=== PATIENT | female | born 1985 | race African-American/Black ===

== ENCOUNTER 2017-07-18 17:12 | Emergency (ER) | payer SELFPAY ==
[~2017-07-18] VITALS: Wt 125.2 kg
[2017-07-18] MEDS ORDERED: SOD CHLORIDE 0.9% 1,000 ML IV STA (18:38)
[2017-07-18] MEDS ORDERED: morphine 4 MG/ML VIAL IV STA ×2 (18:38→23:36)
--- NOTE | 2017-07-18 19:10 | RADRPT ---
PROCEDURE: Chest x-ray CLINICAL INDICATION: Chest pain TECHNIQUE: Chest single view COMPARISON: None FINDINGS: The heart is normal in size. The pulmonary vessels are normal in caliber. The lungs are clear. Th e costophrenic angles are sharp. The visualized bony thorax is unremarkable. IMPRESSION: No acute cardiopulmonary disease. RPTAT: HH .Deshawn Taylor MD, Date Time Electronically viewed and signed by .Deshawn Taylor MD, MD on 07/18/2017 19:10 .W/
--- NOTE | 2017-07-18 19:20 | ERD ---
ER Documentation Chief Complaint Chief Complaint bib ems cc anxiety attack while filing out restraining order at court [facility] This is a 32 year old female presents to the emergency department stating she is having an anxiety attack. Patient states earlier today she was at a courthouse filling out restraining order information. Patient states she developed chest pain, shortness of breath and dizziness. Chest pain is intermittent and started about 8 hours ago. Patient also reports she had a "tumor removed" from her ovary 1 month ago. Patient states she developed pelvic pain and vaginal bleeding today. Patient reports heavy vaginal bleeding. No dysuria, hematuria, urinary urgency. No fevers or chills. Patient repeatedly saying "I feel like I am having anxiety attack!" ROS All systems reviewed and are negative except as per history of present illness. Medications Home Meds Active Scripts Alprazolam* (Xanax*) 0.25 Mg Tablet, 0.25 MG PO Q8H Y for ANXIETY, #10 TAB Prov:EVE ANGELES NP 07/19/17 Discontinued Scripts Hydrocodone/Acetaminophen ([place] 5-325 Tablet) 1 Each Tablet, 1 TAB PO Q6H Y for PAIN, #7 TAB Prov:EVE ANGELES NP 07/19/17 Allergies Allergies: Coded Allergies: No Known Allergy (Unverified , 07/18/17) PMhx/Soc Medical and Surgical Hx: pt denies Medical Hx, pt denies Surgical Hx Hx Alcohol Use: No Hx Substance Use: No Smoking Status: Never smoker Physical Exam Vitals Vital Signs Date Time Temp Pulse Resp B/P Pulse Ox O2 Delivery O2 Flow Rate FiO2 07/19/17 01:02 98.4 53 17 115/62 100 Room Air 07/18/17 17:13 98.5 24 20 150/80 100 Physical Exam Const: Alert, crying Head: Atraumatic Eyes: Normal Conjunctiva ENT: Normal External Ears, Nose and Mouth. Neck: Full range of motion..~ No meningismus. Resp: Clear to auscultation bilaterally Cardio: Regular rate and rhythm, no murmurs Abd: Soft, non tender, non distended. Normal bowel sounds Skin: No petechiae or rashes Back: No midline or flank tenderness Ext: No cyanosis, or edema Neur: Awake and alert Psych: Normal Mood and Affect Result Diagram: 07/18/17190907/18/171909 Results 24 hrs Laboratory Tests Test 07/18/17 19:10 07/18/17 22:10 White Blood Count 8.210^3/ul Red Blood Count 4.4510^6/ul Hemoglobin 12.7g/dl Hematocrit 38.9% Mean Corpuscular Volume 87.4fl Mean Corpuscular Hemoglobin 28.5pg Mean Corpuscular Hemoglobin Concent 32.6g/dl Red Cell Distribution Width 14.0% Platelet Count 76664^3/UL Mean Platelet Volume 12.3fl Neutrophils % 62.4% Lymphocytes % 26.0% Monocytes % 10.1% Eosinophils % 0.9% Basophils % 0.4% Nucleated Red Blood Cells % 0.0/100WBC Neutrophils # 5.110^3/ul Lymphocytes # 2.110^3/ul Monocytes # 0.810^3/ul Eosinophils # 0.110^3/ul Basophils # 0.010^3/ul Nucleated Red Blood Cells # 0.010^3/ul Sodium Level 151mmol/L Potassium Level 4.1mmol/L Chloride Level 109mmol/L Carbon Dioxide Level 26mmol/L Anion Gap 20 Blood Urea Nitrogen 9mg/dl Creatinine 0.83mg/dl Glucose Level 101mg/dl Calcium Level 10.2mg/dl Troponin I < 0.012ng/ml Serum HCG, Qualitative NEGATIVE Urine Color YELLOW Urine Clarity CLEAR Urine pH 5.0 Urine Specific [place] 1.028 Urine Ketones 2+mg/dL Urine Nitrite NEGATIVEmg/dL Urine Bilirubin NEGATIVEmg/dL Urine Urobilinogen NEGATIVEmg/dL Urine Leukocyte Esterase NEGATIVELeu/ul Urine Microscopic RBC 97/HPF Urine Microscopic WBC 2/HPF Urine Mucus FEW/HPF Urine Hemoglobin 3+mg/dL Urine Glucose NEGATIVEmg/dL Urine Total Protein 1+mg/dl Current Medications Medications (Trade) Dose Ordered Sig/Shauna Route PRN Reason Start Time Stop Time Status Last Admin Dose Admin Sodium Chloride (NS) 1,000 ml @ 1,000 mls/hr Q1H STAT IV 07/18/17 18:38 07/18/17 19:37 DC 07/18/17 19:12 Morphine Sulfate (morphine) 4 mg ONCE STAT IV 07/18/17 18:38 07/18/17 18:43 DC 07/18/17 19:12 Lorazepam (Ativan) 1 mg ONCE ONCE IV 07/18/17 21:00 07/18/17 21:01 DC 07/18/17 20:42 Ondansetron HCl (Zofran Odt) 4 mg ONCE STAT ODT 07/18/17 22:08 07/18/17 22:09 DC 07/18/17 22:23 Morphine Sulfate (morphine) 4 mg ONCE STAT IV 07/18/17 23:36 07/18/17 23:37 DC 07/18/17 23:55 Procedures/MDM DIAGNOSTIC IMAGING REPORT Patient: MONSE BOSS : 1985 Age: 32 Sex: F MR #: [id number] DOS: 07/18/171837 Ordering MD: EVE FARLEY NP Location: [facility] Room/Bed: PROCEDURE: US Pelvis CLINICAL INDICATION: Pain, vaginal bleeding TECHNIQUE: Sonographic evaluation of the pelvis was performed utilizing both transabdominal and transvaginal technique. Curved array transabdominal transducer technique as well as a high frequency endovaginal probe was utilized. Images were reviewed on the high-resolution PACS workstation. COMPARISON: None available FINDINGS: The uterus is normal in size, echogenicity, and morphology measuring 8.3 x 4.0 x 4.9 cm in dimension. The uterus is anteverted in normal position. The endometrium measures 1.7 mm in diameter. The normal trilaminar stripe of the endometrium is preserved. Ovaries are not visualized. No adnexal mass is identified. Small amount of pelvic free fluid is present. IMPRESSION: 1. Uterus and endometrium are unremarkable. 2. Bilateral ovaries are not visualized. No adnexal mass is identified. 3. Nonspecific small amount of pelvic free fluid is present, likely physiologic. DIAGNOSTIC IMAGING REPORT Patient: MONSE BOSS : 1985 Age: 32 Sex: F MR #: [id number] DOS: 07/18/171837 Ordering MD: EVE FARLEY NP Location: [facility] Room/Bed: PROCEDURE: Chest x-ray CLINICAL INDICATION: Chest pain TECHNIQUE: Chest single view COMPARISON: None FINDINGS: The heart is normal in size. The pulmonary vessels are normal in caliber. The lungs are clear. The costophrenic angles are sharp. The visualized bony thorax is unremarkable. IMPRESSION: No acute cardiopulmonary disease. [place] [id number] Radiology Main Line: [phone] DIAGNOSTIC IMAGING REPORT Patient: MONSE BOSS : 1985 Age: 32 Sex: F MR #: [id number] DOS: 07/18/17 2238 Ordering MD: EVE FARLEY NP Location: [facility] Room/Bed: PROCEDURE: CT abdomen and pelvis without contrast. CLINICAL INDICATION: Pelvic pain TECHNIQUE: CT scan of the abdomen and pelvis without contrast was performed. Sagittal and coronal reformatted images were obtained from the axial source images. One or more of the following dose reduction techniques were used: Automated exposure control, adjustment of the mA and/or kV according to patient size, use of iterative reconstruction technique. CTDI = 23.74 mGy; DLP = 1502.79 mGy-cm COMPARISON: Pelvic ultrasound 07/18/2017 FINDINGS: The study is limited by the patient's body habitus. Visualized lower thorax: Mild scattered bibasilar subsegmental atelectasis is present greater on the right. There is no evidence for pleural effusion. Liver, gallbladder, pancreas and spleen: Diffuse low attenuation of the liver is compatible with hepatic steatosis with preserved liver size and contour> . There is no evidence for a liver mass or ductal dilatation. The gallbladder is unremarkable. No common bile duct abnormality is demonstrated. The pancreas is unremarkable. The spleen is normal in size. Adrenal glands and genitourinary system: The adrenal glands are normal bilaterally. The kidneys are normal and size, contour and attenuation with no evidence for masses, calculi or hydronephrosis. The ureters are unremarkable. No urinary bladder abnormality is demonstrated. The uterus and adnexa are unremarkable. Free fluid is seen within the posterior cul-de-sac corresponding to the ultrasound findings. There is no evidence of adnexal mass. Metallic density, possibly from a piercing, is seen within the vulva Gastrointestinal system: The stomach is normal in caliber with no abnormality of significance. The small bowel is normal in caliber with no ileus, obstruction or wall thickening. The appendix and surrounding fat are within the limits of normal. Some scattered diverticula are present throughout the colon most pronounced in the transverse segment. There is no evidence for colitis or diverticulitis. Peritoneum, retroperitoneum, lymph nodes and vessels: The abdominal aorta is normal in caliber. There is no evidence for atherosclerotic calcification. The inferior vena cava is unremarkable. There is no evidence for adenopathy or mass. There is no upper abdominal ascites. No pneumoperitoneum is present Osseous structures and musculoskeletal findings: There is no fracture, lytic or blastic lesion. Copious subcutaneous adipose tissues compatible with obesity. RPTAT:HJJR IMPRESSION: 1. Free fluid within the posterior pelvic cul-de-sac as seen on the earlier ultrasound is nonspecific, no pelvic masses are demonstrated. 2. Diverticular disease of the colon without evidence of diverticulitis. 3. Bibasilar subsegmental atelectasis. 4. Hepatic steatosis. EKG: As interpreted by myself and Dr. Keith Rate/Rhythm: Sinus bradycardia with HR 52 beats per minute QRS, ST, T-waves: No changes consistent w/ acute ischemia Impression: No evidence of ischemia or arrhythmia MDM: This is a 32-year-old female presenting to emerge department with chest pain, shortness of breath and dizziness 8 hours. Patient states symptoms started after she was filling out restraining order information at a court house. Patient states "I feel like I am having anxiety attack." IV access obtained and labs drawn. Patient given 1 L IV fluid bolus of normal saline. CBC shows no significant anemia or infection. BMP shows no significant electrolyte imbalance. Normal creatinine and BUN. Troponin is negative. Chest x-ray reviewed by radiologist as no acute cardiopulmonary disease. EKG shows sinus bradycardia with heart rate 52 bpm. Patient given morphine 4 mg IV for pelvic pain. Pelvic ultrasound reviewed by radiologist as uterus and endometrium are unremarkable. Bilateral ovaries are not visualized. No adnexal mass is identified. Nonspecific small amount of pelvic free fluid is present, likely physiologic. Chest x-ray reviewed by radiologist as no acute cardiopulmonary disease. CT abdomen pelvis reviewed by radiologist as free fluid within the posterior pelvic cul-de-sac. Diverticular disease of the colon without evidence of diverticulitis. Hepatic steatosis and bibasilar sub- segmental atelectasis. Upon reassessment, patient states she would need something for anxiety. Patient given 1 mg Ativan IV. Upon reassessment, patient states anxiety symptoms have improved. Patient looks visibly less anxious. Consulted Dr. Nathan regarding this patient and we agree that patient is appropriate for outpatient management. Instructed patient to return to the ED in 8 hours for abdominal pain recheck. Differential diagnosis includes but not limited to acute appendicitis, diverticulitis, diverticulosis, bowel obstruction, constipation, infectious colitis, irritable bowel syndrome, inflammatory bowel disease, viral gastroenteritis, abdominal aortic aneurysm, food intolerance, celiac disease, UTI, pyelonephritis, nephrolithiasis, acute urinary retention or colorectal cancer. I doubt any emergent conditions such as appendicitis, diverticulitis, bowel obstruction, abdominal aortic aneurysm at this time due to normal vital signs and normal lab results. Patient is appropriate for outpatient management. Instructed patient to return to the ED in 8 hours for abdominal pain recheck. Patient given prescription for Xanax 0.25 mg #10. Instructed patient to follow-up with primary care provider in the next 2-3 days for reassessment and additional management. Return to ED for any high fever, chest pain, difficulty breathing, shortness breath, wheezing, vomiting, diarrhea, abdominal pain or any new or worsening symptoms. Patient verbalizes understanding. All questions answered at discharge. Disclaimer: Inadvertent spelling and grammatical errors are likely due to EHR/ dictation software use and do not reflect on the overall quality of patient care. Also, please note that the electronic time recorded on this note does not necessarily reflect the actual time of the patient encounter. Departure Diagnosis: Primary Impression: Anxiety Additional Impression: Pelvic pain Condition: Stable EVE ANGELES NP Jul 18, 2017 19:20
[2017-07-18 19:23] LABS: BASOPHILS % 0.4 % (0.0-2.0); EOSINOPHILS # 0.1 10^3/ul (0.0-0.5); EOSINOPHILS % 0.9 % (0.0-7.0); HEMATOCRIT 38.9 % (37.0-47.0); HEMOGLOBIN 12.7 g/dl (12.0-16.0); LYMPHOCYTES # 2.1 10^3/ul (0.8-2.9); MEAN CORPUSCULAR HEMOGLOBIN 28.5 pg (29.0-33.0); MEAN CORPUSCULAR HGB CONC 32.6 g/dl (32.0-37.0); MEAN CORPUSCULAR VOLUME 87.4 fl (82.0-101.0); MEAN PLATELET VOLUME 12.3 fl (7.4-10.4); MONOCYTE # 0.8 10^3/ul (0.3-0.9); MONOCYTES % 10.1 % (0.0-11.0); NEUTROPHIL # 5.1 10^3/ul (1.6-7.5); NEUTROPHILS % 62.4 % (39.0-77.0); PLATELET COUNT 223 10^3/UL (140-415); RED BLOOD COUNT 4.45 10^6/ul (4.20-5.40); WHITE BLOOD COUNT 8.2 10^3/ul (4.8-10.8)
[2017-07-18 19:45] LABS: ANION GAP 20 (8-16); BLOOD UREA NITROGEN 9 mg/dl (7-20); CALCIUM 10.2 mg/dl (8.4-10.2); CARBON DIOXIDE 26 mmol/L (21-31); CHLORIDE 109 mmol/L (97-110); CREATININE 0.83 mg/dl (0.44-1.00); GLUCOSE 101 mg/dl (70-220); POTASSIUM 4.1 mmol/L (3.5-5.1); SODIUM 151 mmol/L (135-144)
[2017-07-18 19:57] LABS: TROPONIN-I < 0.012 ng/ml (0.00-0.12)
--- NOTE | 2017-07-18 20:39 | RADRPT ---
PROCEDURE: US Pelvis CLINICAL INDICATION: Pain, vaginal bleeding TECHNIQUE: Sonographic evaluation of the pelvis was performed utilizing both transabdominal and tr ansvaginal technique. Curved array transabdominal transducer technique as well as a high frequency endovaginal probe was utilized. Images were reviewed on the high-resolution PACS workstation. COMPARISON: None available FINDINGS: The uterus is normal in size, echogenicity, and morphology measuring 8.3 x 4.0 x 4.9 cm in dimension . The uterus is anteverted in normal position. The endometrium measures 1.7 mm in diameter. The normal trilaminar stripe of the endometrium is preserved. Ovaries are not visualized. No adnexal mass is identified. Small amount of pelvic free fluid is pres ent. IMPRESSION: 1. Uterus and endometrium are unremarkable. 2. Bilateral ovaries are not visualized. No adnexal mass is identified. 3. Nonspecific small amount of pelvic free fluid is present, likely physiologic. RPTAT: HDWR .Francis Carolina MD, MD Date Time Electronically viewed and signed by .Francis Carolina MD, on 07/18/2017 20:38 .R/
[2017-07-18] MEDS ORDERED: LORAZEPAM 2 MG INJ IV ONE (21:00)
[2017-07-18] MEDS ORDERED: ONDANSETRON (ODT) 4 MG TAB ODT STA (22:08)
[2017-07-18 22:35] LABS: ADD UMIC YES; UR ASCORBIC ACID NEGATIVE (NEGATIVE); UR BILIRUBIN (Dip) NEGATIVE (NEGATIVE); UR BLOOD (Dip) 3+ mg/dL (NEGATIVE); UR CLARITY CLEAR (CLEAR); UR COLOR YELLOW (YELLOW); UR GLUCOSE (Dip) NEGATIVE (NEGATIVE); UR KETONES (Dip) 2+ mg/dL (NEGATIVE); UR LEUKOCYTE ESTERASE (Dip) NEGATIVE Leu/ul (NEGATIVE); UR MUCUS FEW /HPF (NONE SEEN); UR NITRITE (Dip) NEGATIVE (NEGATIVE); UR RBC 97 /HPF (0-5); UR SPECIFIC GRAVITY (Dip) 1.028 (1.003-1.030); UR TOTAL PROTEIN (Dip) 1+ mg/dl (NEGATIVE); UR UROBILINOGEN (Dip) NEGATIVE (NEGATIVE)
--- NOTE | 2017-07-19 00:33 | RADRPT ---
PROCEDURE: CT abdomen and pelvis without contrast. CLINICAL INDICATION: Pelvic pain TECHNIQUE: CT scan of the abdomen and pelvis without contrast was performed. Sagittal and coronal reformatted images were obtained from the axial source images. One or more of the following dose re duction techniques were used: Automated exposure control, adjustment of the mA and/or kV according t o patient size, use of iterative reconstruction technique. CTDI = 23.74 mGy; DLP = 1502.79 mGy-cm COMPARISON: Pelvic ultrasound 07/18/2017 FINDINGS: The study is limited by the patient's body habitus. Visualized lower thorax: Mild scattered bibasilar subsegmental atelectasis is present greater on th e right. There is no evidence for pleural effusion. Liver, gallbladder, pancreas and spleen: Diffuse low attenuation of the liver is compatible with he patic steatosis with preserved liver size and contour> . There is no evidence for a liver mass or d uctal dilatation. The gallbladder is unremarkable. No common bile duct abnormality is demonstrated . The pancreas is unremarkable. The spleen is normal in size. Adrenal glands and genitourinary system: The adrenal glands are normal bilaterally. The kidneys are normal and size, contour and attenuation with no evidence for masses, calculi or hydronephrosis. T he ureters are unremarkable. No urinary bladder abnormality is demonstrated. The uterus and adnexa are unremarkable. Free fluid is seen within the posterior cul-de-sac corresponding to the ultrasoun d findings. There is no evidence of adnexal mass. Metallic density, possibly from a piercing, is see n within the vulva Gastrointestinal system: The stomach is normal in caliber with no abnormality of significance. The small bowel is normal in caliber with no ileus, obstruction or wall thickening. The appendix and s urrounding fat are within the limits of normal. Some scattered diverticula are present throughout t he colon most pronounced in the transverse segment. There is no evidence for colitis or diverticuli tis. Peritoneum, retroperitoneum, lymph nodes and vessels: The abdominal aorta is normal in caliber. The re is no evidence for atherosclerotic calcification. The inferior vena cava is unremarkable. There is no evidence for adenopathy or mass. There is no upper abdominal ascites. No pneumoperitoneum is present Osseous structures and musculoskeletal findings: There is no fracture, lytic or blastic lesion. Co pious subcutaneous adipose tissues compatible with obesity. RPTAT:HJJR IMPRESSION: 1. Free fluid within the posterior pelvic cul-de-sac as seen on the earlier ultrasound is nonspecifi c, no pelvic masses are demonstrated. 2. Diverticular disease of the colon without evidence of diverticulitis. 3. Bibasilar subsegmental atelectasis. 4. Hepatic steatosis. Physician Zack Date Time Electronically viewed and signed by Hebert Stephen Physician on 07/19/2017 00:33 JR/
[2017-07-19] MEDS ORDERED: HYDR-906 PO (00:44)
[2017-07-19] MEDS ORDERED: ALPR0.25 PO (01:01)
[2017-07-19 01:02] VITALS: BP 115/62; PULSE 53; RESP 17; TEMP 98.4
== END 2017-07-19 01:04 | disposition home or self-care (01) ==
LOC: FTE 17:12
DX: F41.9 Anxiety disorder, unspecified (principal); R10.2 Pelvic and perineal pain
CPT/HCPCS: 36415; 71010; 74176; 76830; 76856; 80048; 81001; 84484; 84703; 85025; 93005; 96374; 96375; 96376; 99285; J2060; J2270; J7030

== ENCOUNTER 2017-07-23 13:12 | Emergency (ER) | payer MEDICAID ==
[~2017-07-23] VITALS: Ht 177.8 cm; Wt 125.0 kg
[~2017-07-23 13:12] MED LIST: ALPR0.25 PO
[2017-07-23 13:31] VITALS: Ht 177.8 cm; Wt 125.0 kg
--- NOTE | 2017-07-23 13:42 | ERD ---
ER Documentation Chief Complaint Chief Complaint Anxiety HPI The patient is a 32-year-old female, presenting to the ER because of acute anxiety, denies suicidal ideation, homicidal ideation, auditory/visual hallucination. He is under a lot of stress, denies fever, chills, neck pain, chest pain, dyspnea, abdominal pain, vomiting. She was seen in the ER showed 5 days ago for abdominal pain and had negative abdominal pelvic CT and pelvic ultrasound. She complains of low back pain, denies fecal/urinary incontinence. She does not smoke nor drink Past medical history: Anxiety, chronic low back pain, h/o ovarian tumor Past surgical history: None ROS All systems reviewed and are negative except as per history of present illness. Medications Home Meds Active Scripts Ibuprofen* (Motrin*) 600 Mg Tab, 600 MG PO Q6, #30 TAB Prov:MARGIE ROSA MD 07/23/17 Hydroxyzine Pamoate* (Vistaril*) 50 Mg Cap, 50 MG PO BID for 14 Days, CAP Prov:MARGIE ROSA MD 07/23/17 Alprazolam* (Xanax*) 0.25 Mg Tablet, 0.25 MG PO Q8H Y for ANXIETY, #10 TAB Prov:EVE ANGELES NP 07/19/17 Discontinued Scripts Hydrocodone/Acetaminophen ([place] 5-325 Tablet) 1 Each Tablet, 1 TAB PO Q6H Y for PAIN, #7 TAB Prov:EVE ANGELES NP 07/19/17 Allergies Allergies: Coded Allergies: No Known Allergy (Unverified , 07/18/17) PMhx/Soc Hx Alcohol Use: No Hx Substance Use: No Physical Exam Vitals Vital Signs Date Time Temp Pulse Resp B/P Pulse Ox O2 Delivery O2 Flow Rate FiO2 07/23/17 13:31 98.3 73 24 134/90 100 Physical Exam Const: No acute distress. Head: Atraumatic. Eyes: Normal Conjunctiva. ENT: Normal External Ears, Nose and Mouth. Neck: Full range of motion. No meningismus. Resp: Clear to auscultation bilaterally. Cardio: Regular rate and rhythm. Abd: Soft, non distended, normal bowel sounds, non tender. Skin: No petechiae or rashes. Back: No midline or flank tenderness. Ext: No cyanosis, or edema. Neur: Awake and alert. No focal deficit Psych: Very anxious. Result Diagram: 07/23/17 1410 07/23/17 1410 Results 24 hrs Laboratory Tests Test 07/23/17 14:10 White Blood Count 7.510^3/ul Red Blood Count 4.3810^6/ul Hemoglobin 12.5g/dl Hematocrit 38.2% Mean Corpuscular Volume 87.2fl Mean Corpuscular Hemoglobin 28.5pg Mean Corpuscular Hemoglobin Concent 32.7g/dl Red Cell Distribution Width 14.1% Platelet Count 44176^3/UL Mean Platelet Volume 12.4fl Neutrophils % 59.3% Lymphocytes % 30.1% Monocytes % 8.5% Eosinophils % 1.5% Basophils % 0.3% Nucleated Red Blood Cells % 0.0/100WBC Neutrophils # 4.510^3/ul Lymphocytes # 2.310^3/ul Monocytes # 0.610^3/ul Eosinophils # 0.110^3/ul Basophils # 0.010^3/ul Nucleated Red Blood Cells # 0.010^3/ul Urine Color YELLOW Urine Clarity SLIGHTLY CLOUDY Urine pH 5.0 Urine Specific [place] 1.027 Urine Ketones 1+mg/dL Urine Nitrite NEGATIVEmg/dL Urine Bilirubin NEGATIVEmg/dL Urine Urobilinogen NEGATIVEmg/dL Urine Leukocyte Esterase 2+[place]/ul Urine Microscopic RBC 3/HPF Urine Microscopic WBC 22/HPF Urine Squamous Epithelial Cells MANY/HPF Urine Mucus MANY/HPF Urine Hemoglobin 2+mg/dL Urine Glucose NEGATIVEmg/dL Urine Total Protein 1+mg/dl Sodium Level 146mmol/L Potassium Level 4.0mmol/L Chloride Level 106mmol/L Carbon Dioxide Level 25mmol/L Anion Gap 19 Blood Urea Nitrogen 7mg/dl Creatinine 0.85mg/dl Glucose Level 93mg/dl Calcium Level 9.4mg/dl Total Bilirubin 0.2mg/dl Direct Bilirubin 0.00mg/dl Indirect Bilirubin 0.2mg/dl Aspartate Amino Transf (AST/SGOT) 18IU/L Alanine Aminotransferase (ALT/SGPT) 33IU/L Alkaline Phosphatase 78IU/L Total Protein 7.9g/dl Albumin 4.1g/dl Globulin 3.80g/dl Albumin/Globulin Ratio 1.07 Salicylates Level < 1.0mg/dl Urine Opiates Screen Negative Acetaminophen Level < 10.0ug/ml Urine Barbiturates Negative Urine Amphetamines Screen Negative Urine Benzodiazepines Screen Negative Urine Cocaine Screen Negative Urine Cannabinoids Positive Ethyl Alcohol Level < 10.0mg/dl Current Medications Medications (Trade) Dose Ordered Sig/Shauna Route PRN Reason Start Time Stop Time Status Last Admin Dose Admin Lorazepam (Ativan) 1 mg ONCE ONCE PO 07/23/17 14:30 07/23/17 14:31 DC 07/23/17 14:11 Ibuprofen (Motrin) 600 mg ONCE ONCE PO 07/23/17 15:00 07/23/17 15:01 DC 07/23/17 16:22 Procedures/MDM MEDICAL MAKING DECISION: The patient is a 31-year-old female, presenting with anxiety, chronic low back pain. She was treated with Ativan 1 mg p.o. for acute anxiety, Motrin 600 mg p.o. for chronic back pain with good response. She was evaluated by social insurance administrator as well. The differential diagnoses considered include but are not limited to anxiety attack, panic attack, decompensated psychiatric illness Consultation: She was evaluated by telepsychiatrist who recommended to discharge the patient Departure Diagnosis: Primary Impression: Anxiety Additional Impression: Pelvic pain Condition: Good Comments She was discharged with Vistaril and Motrin The patient's blood pressure was elevated (>120/80) but appears stable without evidence of hypertension emergency or urgency. The patient was counseled about the risks of hypertension and urged to pursue outpatient monitoring and therapy within a week with their primary care physician. I discussed the findings with the patient. I advised the patient to follow-up with the primary physician in about 1-2 days, sooner if needed and return if any concern. Disclaimer: Inadvertent spelling and grammatical errors are likely due to EHR/ dictation software use and do not reflect on the overall quality of patient care. Also, please note that the electronic time recorded on this note does not necessarily reflect the actual time of the patient encounter. MARGIE ROSA MD Jul 23, 2017 13:42
[2017-07-23 14:25] LABS: BASOPHILS % 0.3 % (0.0-2.0); EOSINOPHILS # 0.1 10^3/ul (0.0-0.5); EOSINOPHILS % 1.5 % (0.0-7.0); HEMATOCRIT 38.2 % (37.0-47.0); HEMOGLOBIN 12.5 g/dl (12.0-16.0); LYMPHOCYTES # 2.3 10^3/ul (0.8-2.9); LYMPHOCYTES % 30.1 % (15.0-51.0); MEAN CORPUSCULAR HEMOGLOBIN 28.5 pg (29.0-33.0); MEAN CORPUSCULAR HGB CONC 32.7 g/dl (32.0-37.0); MEAN CORPUSCULAR VOLUME 87.2 fl (82.0-101.0); MEAN PLATELET VOLUME 12.4 fl (7.4-10.4); MONOCYTE # 0.6 10^3/ul (0.3-0.9); MONOCYTES % 8.5 % (0.0-11.0); NEUTROPHIL # 4.5 10^3/ul (1.6-7.5); NEUTROPHILS % 59.3 % (39.0-77.0); PLATELET COUNT 215 10^3/UL (140-415); RED BLOOD COUNT 4.38 10^6/ul (4.20-5.40); RED CELL DISTRIBUTION WIDTH 14.1 % (11.5-14.5); WHITE BLOOD COUNT 7.5 10^3/ul (4.8-10.8)
[2017-07-23 14:29] LABS: ADD UMIC YES; UR ASCORBIC ACID NEGATIVE (NEGATIVE); UR BILIRUBIN (Dip) NEGATIVE (NEGATIVE); UR BLOOD (Dip) 2+ mg/dL (NEGATIVE); UR CLARITY SLIGHTLY CLOUDY (CLEAR); UR COLOR YELLOW (YELLOW); UR GLUCOSE (Dip) NEGATIVE (NEGATIVE); UR KETONES (Dip) 1+ mg/dL (NEGATIVE); UR LEUKOCYTE ESTERASE (Dip) 2+ Leu/ul (NEGATIVE); UR MUCUS MANY /HPF (NONE SEEN); UR NITRITE (Dip) NEGATIVE (NEGATIVE); UR RBC 3 /HPF (0-5); UR SPECIFIC GRAVITY (Dip) 1.027 (1.003-1.030); UR SQUAMOUS EPITHELIAL CELL MANY /HPF (FEW); UR TOTAL PROTEIN (Dip) 1+ mg/dl (NEGATIVE); UR UROBILINOGEN (Dip) NEGATIVE (NEGATIVE)
[2017-07-23] MEDS ORDERED: LORAZEPAM 1 MG TAB PO ONE (14:30)
[2017-07-23 14:38] LABS: ALANINE AMINOTRANSFERASE 33 IU/L (13-69); ALBUMIN 4.1 g/dl (3.3-4.9); ALBUMIN/GLOBULIN RATIO 1.07; ALKALINE PHOSPHATASE 78 IU/L (42-121); ANION GAP 19 (8-16); ASPARTATE AMINO TRANSFERASE 18 IU/L (15-46); BILIRUBIN,INDIRECT 0.2 mg/dl (0-1.1); BILIRUBIN,TOTAL 0.2 mg/dl (0.2-1.3); BLOOD UREA NITROGEN 7 mg/dl (7-20); CALCIUM 9.4 mg/dl (8.4-10.2); CARBON DIOXIDE 25 mmol/L (21-31); CHLORIDE 106 mmol/L (97-110); CREATININE 0.85 mg/dl (0.44-1.00); GLUCOSE 93 mg/dl (70-220); SODIUM 146 mmol/L (135-144); TOTAL PROTEIN 7.9 g/dl (6.1-8.1)
[2017-07-23 14:43] LABS: ACETAMINOPHEN < 10.0 ug/ml (10.0-30.0); ETHANOL < 10.0 mg/dl; SALICYLATE < 1.0 mg/dl (5.0-30.0)
[2017-07-23 14:49] LABS: BARBITURATES Negative (NEGATIVE); BENZODIAZEPINES Negative (NEGATIVE); CANNABINOIDS Positive (NEGATIVE); COCAINE Negative (NEGATIVE); OPIATES Negative (NEGATIVE)
[2017-07-23] MEDS ORDERED: IBUPROFEN 600 MG TAB PO ONE (15:00)
--- NOTE | 2017-07-23 16:41 | PSY ---
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 Pt is focused on pain medications. She has a hx anxiety and panic attacks, never rxd any meds; She is in therapy, but not on any meds since she doesn'thave an outpt providers. Past psychiatric history none Family History denies Medical history Problems Medical Problems: (1) Anxiety Status: Acute (2) Anxiety Status: Acute (3) Pelvic pain Status: Acute (4) Pelvic pain Status: Acute Allergies: Coded Allergies: No Known Allergy (Unverified , 07/18/17) Substance Abuse Substance use: No known substance abuse Social History Marital status: single Level of education: college DPA/Conservatorship: No Occupation/Residential: unemployed Psychiatric Objective Eval Physical Examination: Sleep: Adequate Appetite: Adequate Energy: Adequate Interest: Adequate Mental Status Examination: Appearance: Groomed Eye Contact: Good Psychomotor Activity: Normal Behavior: Cooperative Speech: Clear AFFECT: Appropriate Mood: Anxious Though Process: Linear Thought Content: Normal Suicidal: No Homicidal: No On 72 hour hold: No Orientation: x4 Cognition: Alert Insight: Intact Judgement: Intact Attention Span: Intact Laboratory Results Laboratory Tests Test 07/23/17 14:10 White Blood Count 7.510^3/ul Red Blood Count 4.3810^6/ul Hemoglobin 12.5g/dl Hematocrit 38.2% Mean Corpuscular Volume 87.2fl Mean Corpuscular Hemoglobin 28.5pg Mean Corpuscular Hemoglobin Concent 32.7g/dl Red Cell Distribution Width 14.1% Platelet Count 60349^3/UL Mean Platelet Volume 12.4fl Neutrophils % 59.3% Lymphocytes % 30.1% Monocytes % 8.5% Eosinophils % 1.5% Basophils % 0.3% Nucleated Red Blood Cells % 0.0/100WBC Neutrophils # 4.510^3/ul Lymphocytes # 2.310^3/ul Monocytes # 0.610^3/ul Eosinophils # 0.110^3/ul Basophils # 0.010^3/ul Nucleated Red Blood Cells # 0.010^3/ul Urine Color YELLOW Urine Clarity SLIGHTLY CLOUDY Urine pH 5.0 Urine Specific Otis 1.027 Urine Ketones 1+mg/dL Urine Nitrite NEGATIVEmg/dL Urine Bilirubin NEGATIVEmg/dL Urine Urobilinogen NEGATIVEmg/dL Urine Leukocyte Esterase 2+Lynsey/ul Urine Microscopic RBC 3/HPF Urine Microscopic WBC 22/HPF Urine Squamous Epithelial Cells MANY/HPF Urine Mucus MANY/HPF Urine Hemoglobin 2+mg/dL Urine Glucose NEGATIVEmg/dL Urine Total Protein 1+mg/dl Sodium Level 146mmol/L Potassium Level 4.0mmol/L Chloride Level 106mmol/L Carbon Dioxide Level 25mmol/L Anion Gap 19 Blood Urea Nitrogen 7mg/dl Creatinine 0.85mg/dl Glucose Level 93mg/dl Calcium Level 9.4mg/dl Total Bilirubin 0.2mg/dl Direct Bilirubin 0.00mg/dl Indirect Bilirubin 0.2mg/dl Aspartate Amino Transf (AST/SGOT) 18IU/L Alanine Aminotransferase (ALT/SGPT) 33IU/L Alkaline Phosphatase 78IU/L Total Protein 7.9g/dl Albumin 4.1g/dl Globulin 3.80g/dl Albumin/Globulin Ratio 1.07 Salicylates Level < 1.0mg/dl Urine Opiates Screen Negative Acetaminophen Level < 10.0ug/ml Urine Barbiturates Negative Urine Amphetamines Screen Negative Urine Benzodiazepines Screen Negative Urine Cocaine Screen Negative Urine Cannabinoids Positive Ethyl Alcohol Level < 10.0mg/dl Assessment and Plan Assessment/Diagnosis Newberry I: Panic disorder w/o agoraphobia Newberry II: defered Newberry III: chronic pain Newberry IV: moderate Newberry V: gaf 55 Recommendation/Plan Medication Management Vistaril 50 mg po prn q 12 hrs anxiety, panic 2 weeks supply Psychotherapy CBT Pt. Caregiver/Family Education n/a Follow-up/Disposition please refer to out mental health services [id number] Recommendation: VERN LOPEZ MD Jul 23, 2017 16:41
[2017-07-23] MEDS ORDERED: HYDR50CA PO (16:57)
[2017-07-23] MEDS ORDERED: IBUP-1542 PO (16:58)
[2017-07-23 17:25] VITALS: BP 130/74; PULSE 76; RESP 20
== END 2017-07-23 17:27 | disposition home or self-care (01) ==
LOC: E/R 13:12
DX: F41.9 Anxiety disorder, unspecified (principal); R40.2252 Coma scale, best verbal response, oriented, at arrival to emergency department; R10.2 Pelvic and perineal pain; R40.2142 Coma scale, eyes open, spontaneous, at arrival to emergency department; R40.2362 Coma scale, best motor response, obeys commands, at arrival to emergency department
CPT/HCPCS: 36415; 80053; 80306; 80307; 81001; 85025; Z7502; Z7610; 99283